=== PATIENT | male | born 1945 | race Caucasian/White ===

== ENCOUNTER 2019-09-07 08:54 | Day surgery (SDC) | payer MEDICARE ==
[~2019-09-07] VITALS: Ht 180.3 cm; Wt 87.0 kg
[~2019-09-07 08:54] MED LIST: COQ-10100 MG PO; Omega 3 1,0001 EACH PO; Pravachol40 MG PO
--- NOTE | 2019-09-07 11:07 | NUR ---
09/07/19 1107 [place] [place] NOTIFIED PT. & HIS THAT DR. NEWELL WAS RUNNING BEHIND. PT. WAS UP TO BR. OFFERRED WARM BLANKET BUT PT. VERBALIZED BEING FINE. CALL LIGHT IS WITHIN REACH.
== END 2019-09-07 09:57 | disposition home or self-care (01) ==
LOC: ORSCSDS 08:54
PROVIDERS: Internal Medicine Gastroenterology
PROC: 0DJD8ZZ Inspection of Lower Intestinal Tract, Via Natural or Artificial Opening Endoscopic (ICD-10-PCS; principal; 2019-09-07 10:30)
DX: Z12.11 Encounter for screening for malignant neoplasm of colon (principal); Z86.010 Personal history of colon polyps; K57.30 Diverticulosis of large intestine without perforation or abscess without bleeding; Z80.0 Family history of malignant neoplasm of digestive organs; Z79.899 Other long term (current) drug therapy
CPT/HCPCS: J2704; J7120

== ENCOUNTER → 2022-11-07 | Outpatient (CLI) | payer MEDICARE | LOC: PLD 11:25 → LAB SHORT 11:25 | DX: D48.5 Neoplasm of uncertain behavior of skin (principal) | CPT/HCPCS: 88305 ==

== ENCOUNTER → 2022-11-13 | Outpatient (CLI) | payer MEDICARE, OTHER | LOC: LAB SHORT 14:44 → PLD 14:44 → LAB 14:44 | DX: C44.222 Squamous cell carcinoma of skin of right ear and external auricular canal (principal) | CPT/HCPCS: 88305 ==